=== PATIENT | female | born 1990 | race Caucasian/White ===

== ENCOUNTER 2023-06-27 23:21 | Inpatient (IN) | payer BC, SELFPAY ==
[2023-06-27 23:35] VITALS: BP 146/84; PULSE 109
[2023-06-28] VITALS (167 sets, daily range): BP systolic 89–136; BP diastolic 49–93; PULSE 91–144; RESP 16; TEMP 36.6–37.3; O2SAT 80–100; BMI 32.5
--- NOTE | 2023-06-28 02:00 | LDADM ---
This patient, Stacey Bonner, was admitted to Labor/Delivery/Recovery 106 on 06/27/23 at 23:21. Plans for labor, pain management and were discussed with patient. Patient/family oriented to hospital policies and general routines including ID bracelet, bed and alarms, visiting hours, pain management, procedures, bathroom and other care routines, personal items, smoking policy, room service/diet and guest tray routines, security routines, and visiting hours. Patient/Family are encouraged to report perceived risks to care and to ask questions if they do not understand what they are told or what they should do. See OBIX for further documentation.
[2023-06-28 02:19] LABS: Basophils Absolute Auto 0.1 K/mm3 (0.0-0.1); Basophils Percent Auto 0.7 % (0.2-1.2); Eosinophils Absolute Auto 0.3 K/mm3 (0-0.3); Eosinophils Percent Auto 2.8 % (0-4.4); Hematocrit 30.4 % (37.0-47.0); Hemoglobin 9.3 g/dL (12.0-15.0); Immature Granulocyte Absolute 0.15 K/mm3 (0.00-0.031); Immature Granulocyte Percent A 1.3 % (0-0.5); Lymphocytes Absolute Auto 2.63 K/mm3 (0.9-3.2); Mean Corpuscular HGB Conc 30.6 g/dl (32-36); Mean Corpuscular Hemoglobin 22.2 pg (26-34); Mean Corpuscular Volume 72.7 fl (80-100); Monocytes Absolute Auto 0.9 K/mm3 (0.1-0.6); Monocytes Percent Auto 7.6 % (2.6-8.5); Neutrophils Absolute Auto 7.4 K/mm3 (1.3-6.7); Neutrophils Percent Auto 64.6 % (45.5-73.1); Nucleated Red Blood Cells Perc 0.2 % (0.0-0.2); Platelet Count Result 223 k/mm3 (150-375); Red Blood Count 4.18 M/mm3 (4.2-5.4); Red Cell Distribution Width 15.8 % (11.5-14.5); White Blood Count 11.5 K/mm3 (4.5-10.0)
[2023-06-28] MEDS: LACTATED RINGERS 1,000 ML 125 ML IV CONT ×3 (02:25→15:49)
[2023-06-28] MEDS: FAMOTIDINE 20 MG/2 ML VIAL IV PUSH (02:27)
[2023-06-28 02:39] LABS: Anisocytosis 1+ (NORMAL); Platelet Estimate Adequate (Adequate); Polychromasia 1+ (NORMAL); Schistocytes None Seen (NORMAL)
--- NOTE | 2023-06-28 07:34 | WPDOBADMIT ---
Obstetrics - Admit Note Admission Note: record reviewed. No pertinent additions to the history and/or any subsequent changes in the physical findings that are not consistent with the expected course of the were found. Surrogate , admitted in labor overnight, archie every 3-4 minutes sve 3.5/50/-2 AROM moderate amount of clear, odorless fluid, anticipate vaginal delivery Additions to the history and/or subsequent changes in the physical findings follow. None.
[2023-06-28] MEDS: OXYTOCIN 30 UNITS/NS 500 ML 30 UNITS/500 ML BAG IV CONT (08:14)
--- NOTE | 2023-06-28 09:27 | WPDANESEPP ---
Anes - Eval Pre Procedure Procedure: labor epidural Date/Time: 06/28/23 09:27 Surgeon: samy Preop Diagnosis: pain during labor Pre Op Diagnosis: Contractions Patient Data Age: 33 Gender: F Height: 1.63 m Weight: 86.18 kg Last Vital Signs Temp 37.1 C 06/28/23 07:17 Pulse 134 H 06/28/23 09:26 BP 124/87 06/28/23 09:26 Pulse Ox 100 06/28/23 09:24 O2 Del Method Room Air 06/28/23 02:00 Allergies Allergy/AdvReac Type Severity Reaction Status Date / Time No Known Allergies Allergy Verified 06/21/23 13:05 Home Medications Medication Instructions Recorded Confirmed Type vit no.95-ferrous 1 tablet PO DAILY 09/30/19 06/21/23 History fumarate 28 mg-folic acid 800 mcg tablet () Laboratory Tests 06/28/23 02:14 WBC 11.5 H K/mm3 (4.5-10.0) RBC 4.18 L M/mm3 (4.2-5.4) Hgb 9.3 L g/dL (12.0-15.0) Hct 30.4 L % (37.0-47.0) MCV 72.7 L fl (80-100) MCH 22.2 L pg (26-34) MCHC 30.6 L g/dl (32-36) RDW 15.8 H % (11.5-14.5) Plt Count 223 k/mm3 (150-375) MPV 10.0 fl (7.4-10.4) Immature Gran % (Auto) 1.3 H % (0-0.5) Neut % (Auto) 64.6 % (45.5-73.1) Lymph % (Auto) 23.0 % (18.3-44.2) Ramsey % (Auto) 7.6 % (2.6-8.5) Eos % (Auto) 2.8 % (0-4.4) Baso % (Auto) 0.7 % (0.2-1.2) Lymph # (Auto) 2.63 K/mm3 (0.9-3.2) Ramsey # (Auto) 0.9 H K/mm3 (0.1-0.6) Eos # (Auto) 0.3 K/mm3 (0-0.3) Baso # (Auto) 0.1 K/mm3 (0.0-0.1) Abs Immat Gran (auto) 0.15 H K/mm3 (0.00-0.031) Absolute Neuts (auto) 7.4 H K/mm3 (1.3-6.7) Absolute Nucleated RBC 0.0 K/mm3 (0.0-0.012) Nucleated RBC % 0.2 % (0.0-0.2) Platelet Estimate Adequate (Adequate) Polychromasia 1+ (NORMAL) Anisocytosis 1+ (NORMAL) Schistocytes None seen (NORMAL) RPR Pending Blood Type A Positive Antibody Screen Negative Patient hx anesthesia problems: none Family hx anesthesia problems: none Results Review: All pre-operative results and documents have been reviewed as part of the pre-operative evaluation. [facility], [facility] Past Medical History Medical History Anxiety Depression Family History Family History Other Unknown family medical history Social History Social History Smoking status: Never smoker Substance use: never Lack of Transportation: No Lack of Food: Never True Current Housing: I Have Housing Concerned About Future Housing: No Difficulty Paying Gas/Electric Bills: No Difficulty Paying for Meds: No Currently Unemployed: No Education: High School Diploma/GED Difficulty w/ Childcare or Family Care: No Gender identity (if verbalized by the patient): Female Spiritual care concerns: No Exam Day of Procedure 06/28/23 09:27
[2023-06-28 14:31] LABS: Rapid Plasma Reagin Non-Reactive (NonReactive)
--- NOTE | 2023-06-28 19:05 | PM.OBPRVD ---
OB - Delivery Note Procedure Delivery date: 06/28/23 Procedure: Events: Other (IVF, surrogate) Delivery augmentation: Rupture of Membranes and Pitocin Delivery monitor: External FHT and External Uterine Route of delivery: Laceration Description: Superficial Delivery repair: vicryl Specimen: No Quantitative Blood Loss (ml): 130 Anesthesia type: Epidural Disposition: Floor Baby Date of : 06/28/23 Time of : 18:49 Weeks of gestation at delivery: 37 Infant gender: Female Weight (pounds): 8 Weight (ounces): 6 presentation: vertex position: Left Occiput Anterior Placenta delivery description: Spontaneous Cord Vessel Description: 3 Vessels and Delayed Cord Clamping score one minute: 8 score five minutes: 9 Narrative: 30 sec delayed cord clamping, baby to mother for skin to skin, pt stable
[2023-06-28] MEDS: OXYTOCIN 30 UNITS/NS 500 ML 30 UNITS/500 ML BAG 125 UNITS IV CONT (19:23)
[2023-06-28] MEDS: ACETAMINOPHEN 500 MG TABLET 1000 MG (19:26)
[2023-06-28] MEDS: BENZOCAINE 20% AER SPR (*SP) 56 GM CAN 1 SPRAY TOPICAL (21:04)
[2023-06-28] MEDS: WITCH HAZEL 40 PADS 1 PAD TOPICAL (21:04)
--- NOTE | 2023-06-28 21:44 | OBPPTRN ---
Patient transferred to post room #285 via (wheelchair). Support person present. Oriented to unit, room, information board, rooming in, admission packet and security measures. Patient verbalizes understanding.
[2023-06-29] VITALS: BP 98/61; PULSE 100; RESP 18; TEMP 36.1; O2SAT 97
[2023-06-29] MEDS: IBUPROFEN 600 MG TABLET PO ×2 (00:28→06:46)
--- NOTE | 2023-06-29 05:15 | PM.OBPNVD ---
OB - PN: Subj Subjective Date/time seen: 06/29/23 05:15 pp day 1 IVF, surrogate denies pain would like d/c home pain managed OB - PN: Obj Data Labs 06/28/23 02:14 Labs: Laboratory Results - last 24 hr 06/28/23 02:14 RPR Non-reactive OB - PN A/P Plan day: 1 Plan: routine care and discharge home Time Spent With Patient Time: Total time spent is greater than 50% in coordination of care (as documented) at patient's floor/unit and/or counseling patient: Review of Systems Review of Systems: All systems reviewed & are unremarkable except as noted in HPI and below Exam Const: General: cooperative, healthy appearing and comfortable Resp: Effort & Inspection: normal respiratory effort Cardio: Rate: regular rate Rhythm: regular rhythm GI: Other: soft Skin: General skin exam: normal color Neuro: General: patient oriented x3 Extrem: General: normal to inspection Psych: Appearance: grossly normal
--- NOTE | 2023-06-29 05:18 | PM.OBDSVD ---
DS: Admitting Diagnosis Discharge Date 06/29/23 Admitting Diagnosis labor DS: Discharge Diagnosis Discharge Diagnosis (1) Vaginal delivery: Code(s): O80 - Encounter for full-term uncomplicated delivery Status: Acute OB - DS: Summary OB Procedures : None OB Procedures Intrapartum: Spontaneous Vag Delivery OB Procedures: : None Time Spent with Patient Time attestation: Total time spent providing and/or coordinating discharge services: DS: Data Data Completed and Pending Labs on day of discharge: Labs from last 24 hours 06/28/23 02:14 RPR Non-reactive Discharge Plan Discharge Attending physician on discharge: Ladarius Rm Discharging Clinician: Joi Asif Patient Disposition: Home, Self-Care Activity: pelvic rest Diet: regular Patient Instructions: Antibiotic Form Stand Alone Forms: General Discharge Information Follow-up/Referrals: Joi Asif CNM [Primary Care Provider] - 4 Weeks Discharge Medications: New ibuprofen 600 mg Tablet 600 mg PO Q6H PRN (Reason: Cramping) Qty: 30 0RF Discontinued PNV cmb#95-ferrous fumarate-FA [] 28 mg iron- 800 mcg Tablet 1 tablet PO DAILY Date of admission: 06/27/23 23:21 Primary Care Provider: Joi Asif Admitting Provider: Ladarius Rm Attending physician on admission: Ladarius Rm Condition: Stable
[2023-06-29 05:31] LABS: Hematocrit 29.5 % (37.0-47.0); Hemoglobin 8.7 g/dL (12.0-15.0)
[2023-06-29] MEDS: DOCUSATE SODIUM 100 MG CAPSULE PO (06:46)
[2023-06-29] MEDS: POLYSACCHARIDE IRON COMPLEX 150 MG CAPSULE PO (06:46)
[2023-06-29 06:50] VITALS: BP 119/71; PULSE 93; RESP 16; TEMP 36.2
[2023-06-29] MEDS: ACETAMINOPHEN 325 MG TABLET 650 MG PO (11:27)
[2023-07-01 13:30] VITALS: BP 135/92; PULSE 98; RESP 14; TEMP 37.2
== END 2023-06-29 12:30 | disposition home or self-care (01) | DRG 807 ==
LOC: ANHLDR 06-28 09:46 → ANHOB2 06-28 21:50
PROVIDERS: Admitting Provider Obstetrics & Gynecology; PCP Advanced Practice Midwife; Visit Provider Obstetrics & Gynecology
DX: O70.0 First degree perineal laceration during delivery (principal); Z37.0 Single live birth; Z3A.37 37 weeks gestation of pregnancy
CPT/HCPCS: 36415; 85014; 85018; 85025; 86592; 86850; 86900; 86901; A9270; J2590; J2795; J7120